=== PATIENT | female | born 1975 ===

== ENCOUNTER 2021-08-29 09:18 | Outpatient (CLI) | payer OTHER | END 2021-08-29 09:38 | disposition home or self-care (01) | LOC: SONOGRAMA 09:18 | PROVIDERS: ATTEND General Practice | DX: R19.06 Epigastric swelling, mass or lump (principal); R19.09 Other intra-abdominal and pelvic swelling, mass and lump; N63.32 Unspecified lump in axillary tail of the left breast ==